=== PATIENT | male | born 1955 | race Caucasian/White ===

== ENCOUNTER 2017-12-13 01:37 | Emergency (ER) | payer MEDICAID ==
[~2017-12-13] VITALS: Ht 175.3 cm; Wt 125.0 kg
[~2017-12-13 01:37] MED LIST: CYCL-36 PO; HYDR12.56 PO; IBUP-232 PO; MOTI25CH PO; OMEP20TA OR
[2017-12-13 01:38] VITALS: BP 182/105; PULSE 83; RESP 16; TEMP 97.8; O2SAT 97
--- NOTE | 2017-12-13 04:14 | RADRPT ---
EXAM DATE/TIME: 12/13/2017 03:51 [facility] COMPARISON: No previous studies available for comparison. INDICATIONS : Short of breath. MEDICAL HISTORY : None. SURGICAL HISTORY : None. ENCOUNTER: Initial ACUITY: 1 day PAIN SCORE: 0/10 LOCATION: Bilateral chest FINDINGS: A single view of the chest demonstrates cardiomegaly. No focal consolidation or significant effusion. No pneumothorax. CONCLUSION: 1. Cardiomegaly. No focal consolidation or effusion. Kenneth Fernando MD on December 13, 2017 at 4:10 Board Certified Radiologist. This report was verified electronically.
--- NOTE | 2017-12-13 04:28 | RADRPT ---
EXAM DATE/TIME: 12/13/2017 02:56 [facility] COMPARISON: No previous studies available for comparison. INDICATIONS : Bilateral leg swelling. MEDICAL HISTORY : Hypercholesterolemia. Hypertension. SURGICAL HISTORY : Appendectomy. Left knee surgery. ENCOUNTER: Initial ACUITY: 1 day PAIN SCORE: 0/10 LOCATION: Bilateral legs. TECHNIQUE: Venous ultrasound of the left and right leg was performed from the inguinal ligament to the proximal calf. Real-time, color Doppler and spectral tracing, compression and augmentation techniques were us ed. FINDINGS: RIGHT LEG: There is normal compressibility of the deep venous system from the inguinal region to the proximal ca lf. No echogenic clot is seen in the lumen of the common femoral, femoral, popliteal, and posterior tibial veins. There is a normal response of the venous system to proximal and distal augmentation an d respiration. LEFT LEG: There is normal compressibility of the deep venous system from the inguinal region to the proximal ca lf. No echogenic clot is seen in the lumen of the common femoral, femoral, popliteal, and posterior tibial veins. There is a normal response of the venous system to proximal and distal augmentation an d respiration. CONCLUSION: Normal examination. Kenneth Fernando MD on December 13, 2017 at 4:25 Board Certified Radiologist. This report was verified electronically.
[2017-12-13 04:33] VITALS: O2SAT 95
--- NOTE | 2017-12-13 04:54 | PD ---
HPI Chief Complaint: Pain: Acute or Chronic Time Seen by Provider: 03:35 Travel History International Travel<30 days: No Contact w/Intl Traveler<30days: No Traveled to known affect area: No History of Present Illness HPI The patient is a 62 year old male who presents to the [facility] emergency department with a history of left leg swelling and pain that began this evening. Earlier today, he developed swelling to his hands, feet, calfs, and numbness of his extremities. He flew in from [place] today. He hasn't slept for 40 hours. He denies having any prior history of DVT, PE, congestive heart failure, or thyroid disorder. He reports that he does have a history of sleep apnea and is noncompliant with his CPAP. The patient reports that he is moving to the area and will be establishing with a local primary care physician. On review of systems otherwise, the patient denies having any known recent fevers, cough, congestion, neck pain, chest pain, shortness of breath, abdominal pain, vomiting, diarrhea, urinary symptoms, weakness of his extremities, loss of bowel or bladder control, night sweats, unexplained weight loss, facial droop, or difficulty with word finding ability. The patient incidentally reports that 3 weeks ago he completed a 1 month course of antibiotic for Lyme disease treatment. 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 High Cholesterol: Yes Diminished Hearing: No Hypertension: Yes Medical other: Yes Neurologic: Yes (TUMOR ON PITUITARY) Sleep Apnea: Yes Past Surgical History Narrative Surgical The patient's past surgical history is significant for left hand sx, appendectomy. Appendectomy: Yes Other Surgery: Yes (LT HAND UNSPECIFIED) Social History Alcohol Use: No Tobacco Use: No Substance Use: No Allergies-Medications (Allergen,Severity, Reaction): Coded Allergies: penicillin G (Unverified Allergy, Intermediate, 12/13/17) Reported Meds & Prescriptions Reported Meds & Active Scripts Active Motrin (Ibuprofen) 600 Mg Tab 600 Mg PO QID PRN GIVE WITH FOOD Flexeril (Cyclobenzaprine HCl) 10 Mg Tab 10 Mg PO TID PRN Meclizine Hcl (Meclizine HCl) 25 Mg Tab 25 Mg PO Q6HPRN Reported Omeprazole 20 mg (Omeprazole) 20 Mg Tab 20 Mg OR DAILY Hctz (Hydrochlorothiazide) 12.5 Mg Cap 12.5 Mg PO DAILY Review of Systems Except as stated in HPI: all other systems reviewed are Neg General / Constitutional: No: Fever Eyes: No: Visual changes HENT: No: Headaches Cardiovascular: Positive: Edema, No: Chest Pain or Discomfort Respiratory: No: Shortness of Breath Gastrointestinal: No: Nausea, Vomiting, Diarrhea, Abdominal Pain Genitourinary: No: Dysuria Musculoskeletal: Positive: Myalgias, Arthralgias, Edema, Pain Skin: No Rash Neurologic: Positive: Paresthesia, No: Weakness, Focal Abnormalities, Change in Mentation, Slurred Speech, Sensory Disturbance Psychiatric: No: Depression Endocrine: No: Polydipsia Hematologic/Lymphatic: No: Easy Bruising Physical Exam Narrative General: The patient is a well-developed well-nourished male in no acute distress. Head and Neck exam: Head is normocephalic atraumatic. Eyes: EOMI, pupils are equal round and reactive to light. Nose: Midline septum with pink mucous membranes Mouth: Dentition unremarkable. Moist mucus membranes. Posterior oropharynx is not erythematous. No tonsillar hypertrophy. Uvula midline. Airway patent. Neck: No palpable lymphadenopathy. No nuchal rigidity. No thyromegaly. Cardiovascular: Regular rate and rhythm without murmurs, gallops, or rubs. Lungs: Clear to auscultation bilaterally. No wheezes, rhonchi, or rales. Abdomen: Soft, without tenderness to palpation in all 4 quadrants of the abdomen. No guarding, rebound, or rigidity. Normal bowel sounds are audible. No tenderness on palpation of McBurney's point. Extremities: No clubbing or cyanosis. The patient has trace pedal edema noted. The patient has trace edema of his upper extremities. 2+ pulses in all 4 extremities. Back: No spinous process tenderness to palpation. No costovertebral angle tenderness to palpation. Neurologic Exam: Grossly nonfocal Skin Exam: No rash noted. Intact skin that is warm and dry. Data Data Last Documented VS Vital Signs Date Time Temp Pulse Resp B/P (MAP) Pulse Ox O2 Delivery O2 Flow Rate FiO2 12/13/17 06:37 12/13/17 04:35 70 18 12/13/17 04:33 95 Room Air 12/13/17 01:38 97.8 Orders Orders Us Leg Venous Doppler Bilat (12/13/17 03:35) Electrocardiogram (12/13/17 03:36) Complete Blood Count With Diff (12/13/17 03:36) Comprehensive Metabolic Panel (12/13/17 03:36) B-Type Natriuretic Peptide (12/13/17 03:36) Prothrombin Time / Inr (Pt) (12/13/17 03:36) Act Partial Throm Time (Ptt) (12/13/17 03:36) C-Reactive Protein (Crp) (12/13/17 03:36) Urinalysis - C+S If Indicated (12/13/17 03:36) Thyroid Stimulating Hormone (12/13/17 03:36) Chest, Single Ap (12/13/17 03:36) Iv Access Insert/Monitor (12/13/17 03:36) Ecg Monitoring (12/13/17 03:36) Oximetry (12/13/17 03:36) Furosemide Inj (Lasix Inj) (12/13/17 05:30) Ed Discharge Order (12/13/17 05:59) Labs Laboratory Tests Test 12/13/17 04:30 12/13/17 04:40 White Blood Count 5.6 TH/MM3 Red Blood Count 5.21 MIL/MM3 Hemoglobin 13.8 GM/DL Hematocrit 41.4 % Mean Corpuscular Volume 79.5 FL Mean Corpuscular Hemoglobin 26.4 PG Mean Corpuscular Hemoglobin Concent 33.2 % Red Cell Distribution Width 15.1 % Platelet Count 158 TH/MM3 Mean Platelet Volume 8.4 FL Neutrophils (%) (Auto) 56.6 % Lymphocytes (%) (Auto) 26.1 % Monocytes (%) (Auto) 13.1 % Eosinophils (%) (Auto) 3.3 % Basophils (%) (Auto) 0.9 % Neutrophils # (Auto) 3.1 TH/MM3 Lymphocytes # (Auto) 1.4 TH/MM3 Monocytes # (Auto) 0.7 TH/MM3 Eosinophils # (Auto) 0.2 TH/MM3 Basophils # (Auto) 0.1 TH/MM3 CBC Comment DIFF FINAL Differential Comment Prothrombin Time 10.3 SEC Prothromb Time International Ratio 1.0 RATIO Activated Partial Thromboplast Time 25.9 SEC Blood Urea Nitrogen 20 MG/DL Creatinine 1.13 MG/DL Random Glucose 93 MG/DL Total Protein 6.9 GM/DL Albumin 3.3 GM/DL Calcium Level 8.1 MG/DL Alkaline Phosphatase 91 U/L Aspartate Amino Transf (AST/SGOT) 30 U/L Alanine Aminotransferase (ALT/SGPT) 46 U/L Total Bilirubin 0.3 MG/DL Sodium Level 143 MEQ/L Potassium Level 3.5 MEQ/L Chloride Level 108 MEQ/L Carbon Dioxide Level 28.3 MEQ/L Anion Gap 7 MEQ/L Estimat Glomerular Filtration Rate 66 ML/MIN C-Reactive Protein 0.55 MG/DL B-Type Natriuretic Peptide 32 PG/ML Thyroid Stimulating Hormone 3rd Gen 4.000 uIU/ML Urine Color YELLOW Urine Turbidity CLEAR Urine pH 5.5 Urine Specific [place] 1.026 Urine Protein TRACE mg/dL Urine Glucose (UA) NEG mg/dL Urine Ketones NEG mg/dL Urine Occult Blood TRACE Urine Nitrite NEG Urine Bilirubin NEG Urine Urobilinogen LESS THAN 2.0 MG/DL Urine Leukocyte Esterase NEG Urine RBC LESS THAN 1 /hpf Urine WBC LESS THAN 1 /hpf Urine Hyaline Casts 1 /lpf Urine Mucus FEW /lpf Microscopic Urinalysis Comment CULT NOT INDICATED MDM Medical Decision Making Medical Screen Exam Complete: Yes Emergency Medical Condition: Yes Medical Record Reviewed: Yes Interpretation(s) Last Impressions Chest X-Ray 12/13/17335 Signed Impressions: Service Date/Time: Wednesday, December 13, 2017 03:51 - CONCLUSION: 1. Cardiomegaly. No focal consolidation or effusion. Kenneth Fernando MD Lower Extremity Ultrasound 12/13/175 Signed Impressions: Service Date/Time: Wednesday, December 13, 2017 02:56 - CONCLUSION: Normal examination. Kenneth Fernando MD Differential Diagnosis DVT, versus valvular abnormality of the legs causing peripheral edema, versus hypoalbuminemia, versus hypothyroid disorder, versus peripheral neuropathy, versus sciatica Narrative Course During the course of the patients emergency department visit, the patients history, examination, and differential diagnosis were reviewed with the patient. The patient was placed on a cardiac cath tech with oximetry and frequent blood pressure monitoring. The patient had IV access obtained and blood work sent for analysis. The patient has an EKG that shows a sinus rhythm heart rate of 69, no acute ST segment elevation or depression. The patient was initially provided Lasix 20 mg IV. The patients laboratory studies were reviewed and remarkable for a white count of 5.6, hemoglobin 13.8, platelets 158, monocytes 13. PT 10.3, PTT 25.9. CMP is remarkable for chloride of 108, BUN 20, GFR 66, calcium 8.1, C-reactive protein 0.55, BNP within normal limits, albumin 3.3, slightly low was could be contributing to his edema, TSH is elevated at 4.0, PT PTT unremarkable, urinalysis unremarkable. Radiology studies were reviewed and remarkable for a chest x-ray that shows cardiomegaly, no focal consolidation or effusion. Ultrasound of bilateral lower extremities reveals no evidence of DVT. The patient is given a copy of his TSH results. He is given a lab slip to obtain further thyroid testing. The patient is instructed to follow-up with the [facility] for additional treatment. The patient is resting comfortably and feels better, is alert and in no distress. The patients results and examination findings were discussed with the patient. The repeat examination is unremarkable and benign. The history, exam, diagnostic testing, and current condition do not suggest any significant pathology to warrant further testing, continued ED treatment, admission, or surgical evaluation at this point. The vital signs have been stable. The patient does not have uncontrollable pain, intractable vomiting, or other significant symptoms. The patient's condition is stable and appropriate for discharge. The patient will pursue further outpatient evaluation with a primary care physician or other designated or consulting physician as indicated in the discharge instructions. The patient expressed understanding and was agreeable with this plan. Diagnosis Primary Impression: Peripheral edema Additional Impressions: Hypothyroid Qualified Codes: E03.9 - Hypothyroidism, unspecified Neuropathy Referrals: [facility] Patient Instructions: General Instructions, Hypothyroidism (ED), Leg Edema (ED) , Peripheral Neuropathy (ED) Additional Instructions: The patient is instructed regarding the elevated TSH on his laboratory studies. His he does not have a local primary care physician he is given the name of the [facility] for follow-up. He is given an outpatient lab slip to obtain a free T3-T4. The patient is instructed that his edema could be related to hypothyroidism which would be improved with supplementation. Disposition: 01 DISCHARGE HOME Condition: Stable Bonnie Castellanos MD Dec 13, 2017 04:54
[2017-12-13 04:58] LABS: AUTOMATED NEUTROPHIL # 3.1 TH/MM3 (1.8-7.7); BASOPHIL # 0.1 TH/MM3 (0-0.2); BASOPHIL % 0.9 % (0.0-2.0); EOSINOPHIL # 0.2 TH/MM3 (0-0.4); EOSINOPHIL % 3.3 % (0.0-4.0); HEMATOCRIT 41.4 % (39.0-51.0); HEMOGLOBIN 13.8 GM/DL (13.0-17.0); LYMPH % 26.1 % (9.0-44.0); LYMPHOCYTE # 1.4 TH/MM3 (1.0-4.8); MEAN CELL VOLUME 79.5 FL (80.0-100.0); MEAN CORPUSCULAR HEMOGLOBIN 26.4 PG (27.0-34.0); MEAN CORPUSCULAR HGB CONC 33.2 % (32.0-36.0); MEAN PLATELET VOLUME 8.4 FL (7.0-11.0); MONO % 13.1 % (0.0-8.0); MONOCYTE # 0.7 TH/MM3 (0-0.9); NEUT % 56.6 % (16.0-70.0); PLATELET COUNT 158 TH/MM3 (150-450); RED BLOOD COUNT 5.21 MIL/MM3 (4.50-5.90); RED CELL DISTRIBUTION WIDTH 15.1 % (11.6-17.2); WHITE BLOOD COUNT 5.6 TH/MM3 (4.0-11.0)
[2017-12-13 05:03] LABS: PROTHROMBIN TIME - PATIENT 10.3 SEC (9.8-11.6)
[2017-12-13 05:19] LABS: ALBUMIN 3.3 GM/DL (3.4-5.0); ALT (GPT) 46 U/L (12-78); AST (GOT) 30 U/L (15-37); BICARBONATE 28.3 MEQ/L (21.0-32.0); BLOOD UREA NITROGEN 20 MG/DL (7-18); C-REACTIVE PROTEIN 0.55 MG/DL (0.00-0.30); CALCIUM 8.1 MG/DL (8.5-10.1); CHLORIDE 108 MEQ/L (98-107); CREATININE 1.13 MG/DL (0.60-1.30); GLOMERULAR FILTRATION RATE 66 ML/MIN (>89); GLUCOSE,RANDOM 93 MG/DL (74-106); SODIUM (NA) 143 MEQ/L (136-145)
[2017-12-13 05:29] LABS: ALKALINE PHOSPHATASE 91 U/L (45-117); TOTAL BILIRUBIN ADULT 0.3 MG/DL (0.2-1.0); TOTAL PROTEIN 6.9 GM/DL (6.4-8.2)
[2017-12-13 05:30] LABS: BILIRUBIN, URINE NEG (NEG); BLOOD, URINE TRACE (NEG); GLUCOSE,URINE NEG (NEG); HYALINE CAST, URINE 1 /lpf (RARE); KETONE, URINE NEG (NEG); MUCUS URINE FEW /lpf (OCC); NITRITE,URINE NEG (NEG); PH, URINE 5.5 (5.0-8.5); URINE COLOR YELLOW (YELLW/STRAW); URINE LEUKOCYTE ESTERASE NEG (NEG)
[2017-12-13] MEDS ORDERED: FUROSEMIDE 20 MG/2 ML VIAL IV PUSH ONE (05:30)
--- NOTE | 2017-12-14 00:33 | EKG ---
Date Performed: 12/13/2017 Time Performed: 04:28:22 PTAGE: 62 years EKG: Sinus rhythm NORMAL ECG PREVIOUS TRACING : 06/05/2012 13.58 Since the prior tracing, there has been no significant messina DOCTOR: Marko Llanos Interpretating Date/Time 12/14/2017 00:32:08
== END 2017-12-13 06:59 | disposition home or self-care (01) ==
LOC: NEPE 01:37
DX: R60.0 Localized edema (principal); E03.9 Hypothyroidism, unspecified; G62.9 Polyneuropathy, unspecified; K21.9 Gastro-esophageal reflux disease without esophagitis; I10 Essential (primary) hypertension; G47.30 Sleep apnea, unspecified
CPT/HCPCS: 71045; 80053; 81001; 83880; 84443; 85025; 85610; 85730; 86140; 93005; 93970; 96374; 99285; J1940